=== PATIENT | female | born 1975 | race African-American/Black ===

== ENCOUNTER 2023-04-05 18:44 | Emergency (ER) | payer MEDICAID ==
[~2023-04-05] VITALS: Ht 165.1 cm; Wt 91.0 kg
[2023-04-05 19:22] VITALS: BP 177/105; PULSE 84; RESP 16; TEMP 98.7; O2SAT 100
== END 2023-04-05 21:08 | disposition left against medical advice (07) ==
LOC: ER 18:58
DX: H57.89 Other specified disorders of eye and adnexa (principal); J44.9 Chronic obstructive pulmonary disease, unspecified; M79.7 Fibromyalgia; Z88.0 Allergy status to penicillin
CPT/HCPCS: 99281